=== PATIENT | female | born 1970 | race Caucasian/White ===

== ENCOUNTER 2017-04-19 11:16 | Emergency (ER) | payer MEDICAID ==
[~2017-04-19] VITALS: Ht 175.3 cm; Wt 99.0 kg
[2017-04-19] MEDS ORDERED: SODIUM CHLORIDE 0.9% 1,000ML IVBOLUS ONE (12:00)
[2017-04-19] MEDS ORDERED: SODIUM CHLORIDE FLUSH 10ML SYR IVF ONE (12:00)
[2017-04-19 13:44] VITALS: BP 107/54
== END 2017-04-19 14:13 | disposition home or self-care (01) ==
LOC: ED 12:47
DX: R55 Syncope and collapse (principal)
CPT/HCPCS: 36415; 80047; 93005; 96360; 99285; J7030